=== PATIENT | female | born 1995 | race Caucasian/White ===

== ENCOUNTER 2020-02-27 07:48 | Outpatient (CLI) | payer OTHER, SELFPAY ==
[2020-02-27 08:38] LABS: Beta HCG Quantitative < 2.39 mIU/ML
== END 2020-02-27 07:49 | disposition home or self-care (01) ==
LOC: ANHLAB 07:49
PROVIDERS: Visit Provider Student in an Organized Health Care Education/Training Program
DX: Z30.430 Encounter for insertion of intrauterine contraceptive device (principal)
CPT/HCPCS: 36415; 84702

== ENCOUNTER 2022-01-09 10:40 | Emergency (ER) | payer BC, SELFPAY ==
[2022-01-09 10:49] VITALS: BP 122/72; PULSE 93; RESP 18; TEMP 36.6; O2SAT 100
--- NOTE | 2022-01-09 11:24 | ED.URI ---
HPI - URI/Sore Throat General Chief Complaint: Upper Respiratory Infection Stated Complaint: sore throat Time Seen by Provider: 01/09/22 11:24 Source: patient, RN notes reviewed and old records reviewed Mode of arrival: ambulatory Limitations: no limitations History of Present Illness HPI Narrative: 26 year old female presents to [facility] care with complaints of sore throat for the past 5 days with increase in discomfort the past 24 hours. Patient reports some allergy symptoms also of stuffy nose has histoy of environmental allegies and asthma and frequent strep throat. Patient reports increase pain with swallowing rates her pain /10. denies any known fevers chills or sweats, no cough or any ear pain. Pertinent past history: other (strep pharyngitis) Onset (ago): day(s) (5) Able to tolerate fluids by mouth: Yes Related Data Home Medications Medication Instructions Recorded Confirmed dextroamphetamine-amphetamine ER cap PO 01/09/22 20 mg 24hr capsule,extend release Allergies Allergy/AdvReac Type Severity Reaction Status Date / Time No Known Allergies Allergy Unverified 06/07/18 15:03 Review of Systems Review of Systems: CONSTITUTIONAL: Denies fever, chills, or sweats. EYES: Denies visual changes, redness, or discharge. ENT: Denies rhinorrhea, congestion,reports stuffy nose, positive for sore throat, or otalgia. CARDIOVASCULAR: Denies chest pain, palpitations, or edema. RESPIRATORY: Denies cough or dyspnea. GASTROINTESTINAL: Denies abdominal pain, nausea, vomiting, or diarrhea. GENITOURINARY: Denies dysuria or hematuria. SKIN: Denies rash or itching. MUSCULOSKELETAL: Denies back pain, joint pain, or myalgia. NEUROLOGIC: Denies headache, numbness, or weakness. PSYCHIATRIC: Denies anxiety or depression. [facility] Past Medical History Medical History (Updated 01/10/22 @ 00:01 by Prakash Malave) Strep pharyngitis Family History Family History Mother Diabetes mellitus Grandparent Cerebrovascular accident Family history of malignant neoplasm of breast in first degree relative Other Family history of malignant neoplasm of ovary Social History Social History Smoking status: Never smoker Second hand tobacco smoke exposure: No Alcohol intake: current Comments At time of signature, agree with nursing past medical, surgical, social and family history. There is no relevant family history pertinent to the presenting complaint Exam Narrative: GENERAL: Well-appearing, well-nourished, and in no acute distress. HEAD: Normocephalic, atraumatic. EYES: PERRLA and EOMI. ENT: Nares clear, scant clear rhinorrhea no epistaxis. Mucous membranes moist.TM's normal with good light reflex, Tonsils red acutely swollen with white exudates, uvula red and swollen NECK: Supple.lymphadenopathy CHEST: Clear to auscultation. No respiratory distress.no cough SAO2 100% on room air HEART: Regular rate and rhythm. No murmur heard. Normal peripheral pulses. ABDOMEN: Soft, nontender, nondistended, normal active bowel sounds.n with some EXTREMITIES: Normal range of motion. No edema. SKIN: Warm, dry, no rash NEURO: No focal deficits. Alert and oriented x3. Course Course Level of Care: Express Care Visit Vital Signs Vital signs: Vital Signs Temperature 36.6 C 01/09/22 10:49 Pulse Rate 93 01/09/22 10:49 Respiratory Rate 18 01/09/22 10:49 Blood Pressure 122/72 01/09/22 10:49 Pulse Oximetry 100 01/09/22 10:49 Oxygen Delivery Room Air 01/09/22 10:49 Temperature 36.6 C 01/09/22 10:49 Pulse Rate 93 01/09/22 10:49 Respiratory Rate 18 01/09/22 10:49 Blood Pressure 122/72 01/09/22 10:49 Pulse Oximetry 100 01/09/22 10:49 Oxygen Delivery Room Air 01/09/22 10:49 MDM - URI/Sore Throat Differential Diagnosis Differential diagnosis: Likely upper respiratory infection, sinusitis, v
== END 2022-01-09 11:40 | disposition home or self-care (01) ==
PROVIDERS: Emergency Provider Registered Nurse
DX: J03.90 Acute tonsillitis, unspecified (principal); F90.9 Attention-deficit hyperactivity disorder, unspecified type
CPT/HCPCS: 87081; 87880; 99203; G0463

== ENCOUNTER 2023-01-12 16:56 | Emergency (ER) | payer BC, SELFPAY ==
--- NOTE | ~2023-01-12 | XR_ITS ---
EXAMINATION: XR chest 2V Exam Date/Time: 01/12/2023 17:25 CDT HISTORY: COUGH/CONGESTION SINCE 01/09/23. ASTHMA. Comparison: None. RESULT: Lines, tubes, and devices: None. Lungs and pleura: Clear. Cardiomediastinal silhouette: Unremarkable. Other: No acute osseous or upper abdominal finding. IMPRESSION: No acute cardiopulmonary process. Reviewed, dictated and finalized at location K.
[2023-01-12 17:00] VITALS: BP 132/79; PULSE 93; RESP 20; TEMP 37; O2SAT 99
--- NOTE | 2023-01-12 17:22 | ED.GENADULT ---
HPI - General Adult General Chief complaint: Upper Respiratory Infection Stated complaint: sore throat/congestion in chest Source: patient Mode of arrival: ambulatory Limitations: no limitations History of Present Illness HPI narrative: Patient presents for evaluation of sick symptoms since this past weekend. Symptoms include cough, shortness of breath, sore throat and sensation of fluid in the chest . She has a hx of asthma. She does not have nebs or an inhaler at home. No recent sick contacts to her knowledge. She does not smoke. She took some mucinex cold and sinus this morning. She cannot say whether or not the medication particularly helped. Hx of tonsillectomy. Related Data Home Medications Medication Instructions Recorded Confirmed albuterol 90 mcg/actuation aerosol mcg inhalation 01/15/20 02/06/22 inhaler levonorgestrel 21 mcg/24 hours (8 1 device intrauterine ONCE 04/04/20 02/06/22 yrs) 52 mg intrauterine device (Mirena) Allergies Allergy/AdvReac Type Severity Reaction Status Date / Time No Known Allergies Allergy Verified 12/31/22 07:39 Review of Systems Review of Systems: CONSTITUTIONAL: Denies fever, chills, or sweats. EYES: Denies visual changes, redness, or discharge. ENT: Reports sore throat. Denies otalgia CARDIOVASCULAR: Denies chest pain, palpitations, or edema. RESPIRATORY: Reports cough, shortness of breath and sensation of fluid in the lungs GASTROINTESTINAL: Denies abdominal pain, nausea, vomiting, or diarrhea. GENITOURINARY: Denies dysuria or hematuria. SKIN: Denies rash or itching. MUSCULOSKELETAL: Denies back pain, joint pain, or myalgia. NEUROLOGIC: Denies headache, numbness, dizziness, or weakness. PSYCHIATRIC: Denies anxiety or depression. [facility] Past Medical History Medical History Anxiety Asthma Club foot Depression Strep pharyngitis Surgical History Surgical History H/O left knee surgery History of nasal septoplasty [place] teeth removed Family History Family History Mother Diabetes mellitus Grandparent Breast cancer Mother Diabetes mellitus Grandparent Cerebrovascular accident Family history of malignant neoplasm of breast in first degree relative Other Family history of malignant neoplasm of ovary Social History Social History Smoking status: Never smoker Second hand tobacco smoke exposure: No Alcohol intake: current Substance use: never Exam Narrative: GENERAL: Well-appearing, well-nourished, and in no acute distress. HEAD: Normocephalic, atraumatic. EYES: PERRLA and EOMI. ENT: Nares clear, no rhinorrhea or epistaxis. Mucous membranes moist. Tonsils are surgically absent. Uvula is midline. No exudate in posterior pharynx. Bilateral TMs pearly quispe nonbulging NECK: Supple. No adenopathy or masses. No carotid bruits or JVD CHEST: Clear to auscultation. No respiratory distress. No wheezes rales or rhonchi HEART: Regular rate and rhythm. No murmur heard. Normal peripheral pulses. ABDOMEN: Soft, nontender, nondistended, normal active bowel sounds. EXTREMITIES: Normal range of motion. No edema. SKIN: Warm, dry, no rash. NEURO: No focal deficits. Alert and oriented x3. PSYCH: Normal mood and affect. Course Course Emergency Course: This is a 27-year-old female who presented for evaluation of sick symptoms. Chest x-ray negative. Exam is consistent with acute viral syndrome. Will discharge with prednisone and albuterol. Mucinex DM should help with cough. Follow up with primary provider. Go to ER for difficulty breathing or worsening symptoms. Pt in agreement with plan of care. Level of Care: Express Care Visit Vital Signs Vital signs: Vital Signs Temperature 37.0 C
== END 2023-01-12 17:50 | disposition home or self-care (01) ==
PROVIDERS: Emergency Provider Nurse Practitioner; PCP Family Medicine Sports Medicine
DX: J06.9 Acute upper respiratory infection, unspecified (principal); J45.909 Unspecified asthma, uncomplicated
CPT/HCPCS: 71046; 99213; G0463